=== PATIENT | female | born 1965 | race Caucasian/White ===

== ENCOUNTER 2018-08-10 12:24 | Emergency (ER) | payer OTHER, SELFPAY ==
[2018-08-10 12:24] VITALS: BP 116/90; PULSE 72; RESP 16; TEMP 36.3; O2SAT 94; BMI 25.0
--- NOTE | 2018-08-10 12:35 | ED.DCSUM_ITS ---
- ER Visit Summary Date of Service: 08/10/18 Chief Complaint: Flank pain History of Present Illness: The patient is a 52 F who has right flank pain. It started while at work today. It is a dull pain in the right thoracic area. It does not radiate. She states it does shoot. Is better with sitting. No dysuria or hematuria. She does take daily ibuprofen. She is moving things at home but did not have any specific injuries. No history of kidney stones in the past. Physical Examination: Vital signs reviewed. HEENT exam unremarkable. Heart is regular rate and rhythm without murmurs. Lungs are clear to auscultation. Abdomen is soft and nontender. Extremities reveal no edema. Skin exam normal. Neurologic exam normal. Test Results: Urinalysis negative Emergency Department Course and Treatment: Patient received Toradol in the emergency department. When I went to reevaluate the patient she had eloped from the emergency department. Treatment Plan: [] Disposition: Elopement Impression: Back pain This note was generated with [employer] dictation software. It may contain incorrect words, spelling, and punctuation that were not noted in review of the chart prior to signing ED Disposition - Plan for ED Patient: Chief Complaint: Back
[2018-08-10] MEDS: Ketorolac 60 MG/2 ML Vial IM (12:45)
[2018-08-10 13:28] LABS: Bacteria 0 SEEN /hpf (None Seen); Mucous, Urine 0 SEEN /hpf (<or=2+); Red Blood Cells-Urine 0 SEEN /hpf (0-5); Squamous Epithelial Cells - UA 0 SEEN /hpf (5-10); White Blood Cells 0 SEEN /hpf (0-5)
[2018-08-10 13:47] LABS: Color, Urine Yellow (Yellow); Glucose, Dipstick Normal (Normal); Ketone-Dipstick Negative (Negative); Leukocyte Esterase-Dipstick Negative /ul (Negative); Nitrite-Dipstick Negative (Negative); Occult Blood-Urine Negative /ul (Negative); Protein-Dipstick Negative (Negative); Urine Bilirubin Dipstick Negative (Negative); Urine Clarity Clear (Clear); Urine Urobilinogen Normal (Normal)
--- NOTE | 2018-08-10 14:37 | ED.RN ---
THIS RN RETURNED TO ROOM, PT NOT IN ROOM OR IN DEPT. MD NOTIFIED.
--- OUTSIDE RECORDS SUMMARY | 2018-09-26 08:32 | XMS RPT_ITS ---
:1965 Author Organization [facility] Care Team Providers Name Role Phone Lalo Luciano Attending Unavailable KARTHIK STALEY Primary Care Unavailable PROBLEMS PROBLEMS No Problem Records FoundPROCEDURES PROCEDURES No Procedure Records FoundRESULTS RESULTS EMERGENCY DEPARTMENT Observed: 08/10/2018 Status: F Source: [place] SUMMARY 2:31 PM [facility] REPOSITORY [facility] Medical Records Department [address] [place] [address] Emergency Department Summary 08/10/18 1235 MR#: [id number] Acct: [id number] Name: ZHEN AU Rep #: [id number] : 1965 52 From: Lalo Luciano MD PCP: Karthik Staley Status: REG ER - ER Visit Summary Date of Service: 08/10/18 Chief Complaint: Flank pain History of Present Illness: The patient is a 52 F who has right flank pain. It started while at work today. It is a dull pain in the right thoracic area. It does not radiate. She states it does shoot. Is better with sitting. No dysuria or hematuria. She does take daily ibuprofen. She is moving things at home but did not have any specific injuries. No history of kidney stones in the past. Physical Examination: Vital signs reviewed. HEENT exam unremarkable. Heart is regular rate and rhythm without murmurs. Lungs are clear to auscultation. Abdomen is soft and nontender. Extremities reveal no edema. Skin exam normal. Neurologic exam normal. Test Results: Urinalysis negative Emergency Department Course and Treatment: Patient received Toradol in the emergency department. When I went to reevaluate the patient she had eloped from the emergency department. Treatment Plan: [] Disposition: Elopement Impression: Back pain This note was generated with [employer] dictation software. It may contain incorrect words, spelling, and punctuation that were not noted in review of the chart prior to signing ED Disposition - Plan for ED Patient: Chief Complaint: Back What to do if you have Problems For any increased pain, shortness of breath, bleeding, nausea or vomiting, chest pain, or any unexpected problems, contact your Primary Care Provider. Call [facility] ([phone]) or report to the closest Emergency Room. Call 911 if necessary. 08/10/18 1431 <Electronically signed by Lalo Luciano MD> Date Lalo Luciano MD Cosigner Signature (If Indicated): Date CC: Karthik Staley; Karthik Staley, DO URINALYSIS, COMPLETE Collected: 08/10/2018 Status: F Source: [place] 12:15 PM [facility] REPOSITORY Order Comment: How was Urine Obtained? CLERK CHECKER TO SPECIFY TYPE CODE TESTS RESULT OUT OF RANGE REFERENCE UNITS LAB L400.3000 Yellow COLOR Normal Yellow LAB L400.3050 Clear Normal CLARITY Clear LAB L400.3200 Normal mg/dl Normal GLUCOSE, UR Normal LAB L400.3300 Negative mg/dL Normal BILIRUBIN URINE Negative LAB L400.3400 Negative mg/dl Normal KETONE UR Negative LAB L400.3465 1.002-1.030 Normal SP.GR. DIPSTX 1.030 LAB L400.3550 5.0 - 8.0 pH UR Normal 5.0 LAB L400.3600 Negative mg/dl PROT Normal DIPSTX Negative LAB L400.3700 Normal mg/dl Normal UROBILI Normal LAB L400.3750 Negative Normal NITRITE UR Negative LAB L400.3780 Negative /ul Normal OCCULT BLOOD-UR Negative LAB L400.3800 Negative /ul LEUK Normal ESTERASE Negative LAB L400.4050 0-5 /hpf WBC 0 Normal SEEN LAB L400.4100 0-5 /hpf 0 Normal RBC-UA SEEN LAB L400.4150 5-10 /hpf SQUAM 0 Normal EPI SEEN LAB L400.4300 None Seen /hpf 0 Normal BACTERIA SEEN LAB L400.4350 <or=2+ /hpf 0 Normal MUCUS, URINE SEEN Performed By: #### L400.0001 #### [facility] [address] [place], [address] ALLERGIES ALLERGIES DATE TYPE / CODE NAME / CODE REACTION SEVERITY SOURCE 08/10/2018 Drug No Known Unknown [facility] Allergy/4160 Allergies/F00 Hospital 44565(SNOMED [id number](RXNOR Repository CT) M) ENCOUNTERS ENCOUNTERS ADMIT/DISCHARGE ACCOUNT ADMITTING ENCOUNTER LOCATION SOURCE NUMBER CLASS 08/10/2018/ [id number] Emergency [address] ing:ED Repository PAYERS PAYERS ENCOUNTER GUARANTOR PAYER SUBSCRIBER SOURCE 08/10/2018 ZHEN [id number] Primary ANA MARIA HUTCHINSB: Malia [place] Insurance:[id number] Number: [facility] [id number]: [phone]) [id number] Repository [phone] () Date:2018-08-10P.OAlma SANTANA [address] [id number]: 08/10/2018 Secondary NOT GIVENUNK Malia Insurance:SELF PAY [facility] Number: Effective Repository Date:2018-08-10
== END 2018-08-10 14:39 | disposition home or self-care (01) ==
PROVIDERS: Emergency Provider Emergency Medicine; Family Provider Family Medicine; PCP Family Medicine
DX: M54.6 Pain in thoracic spine (principal); Z72.0 Tobacco use
CPT/HCPCS: 81001; 96372; 99282